=== PATIENT | female | born 1940 | race Caucasian/White ===

== ENCOUNTER 2017-01-04 10:01 | Emergency (ER) | payer OTHER ==
[2017-01-04 10:05] VITALS: BP 168/90; PULSE 87; RESP 14; TEMP 97.9; O2SAT 92
[2017-01-04] MEDS ORDERED: TDAP ADULT 0.5 ML INJ (BOOSTRIX) IM ONE (10:27)
--- NOTE | 2017-01-04 10:31 | EDPHY ---
H & P Time Seen by Provider: 01/04/17 10:03 HPI/ROS: CHIEF COMPLAINT: Left middle finger laceration HISTORY OF PRESENT ILLNESS: 76-year-old female who is [id number] presents emergency department with a laceration to her left middle finger that she sustained 14 hours ago with a kitchen knife while cutting a sweet potato. Tetanus is not up-to-date. Patient denies numbness or tingling to her hand, she denies other complaints. Smoking Status: Never smoked Physical Exam: GEN: Awake, alert, oriented, no acute distress RESP: nl resp effort MSK: Left middle finger with full active flexion and extension against resistance at DIP, PIP and MCP joint, 2 point discrimination intact SKIN: 0.5 cm flap laceration to left lateral middle finger Constitutional: Initial Vital Signs Temperature (C) 36.6 C 01/04/17 10:03 Heart Rate 87 01/04/17 10:03 Respiratory Rate 14 01/04/17 10:03 Blood Pressure 168/90 H 01/04/17 10:03 O2 Sat (%) 92 01/04/17 10:03 O2 Delivery Mode Room Air Allergies/Adverse Reactions: Sulfa (Sulfonamide Antibiotics) Allergy (Mild, Verified 02/28/14 12:22) Itching Home Medications: Medication Instructions Recorded Aspirin [Aspirin 81mg (*)] 81 mg PO HS 02/28/14 Cetirizine [ZyrTEC 10 mg (*)] 10 mg PO DAILY 02/28/14 Diltiazem Cd [Cardizem ER 120 MG 120 mg PO DAILY #30 cap 03/02/14 (*)] MDM/Departure - MDM Procedures: Left middle finger anesthetized with 1% lidocaine without epinephrine using a digital block. Finger was cleaned well by the emergency department instrument technician apprentice. This laceration was not sutured as she sustained this laceration 14 hours ago. Laceration flap is well aligned. Bulky dressing was placed. Patient is given strict return precautions. She was given a tetanus booster today. - Depart Disposition: Home, Routine, Self-Care Clinical Impression: Laceration of left middle finger Condition: Good Instructions: Finger Laceration (ED) Additional Instructions: Keep dressing clean and dry for 72 hours. Then you may take this off, shower as usual, place antibiotic ointment and Band-Aid. Return to the emergency department for any fevers, increased pain, drainage, any signs of infection, any new symptoms or concerns. Referrals: Artemio Curran MD [Primary Care Provider] - Follow Up Only If Needed
== END 2017-01-04 11:00 | disposition home or self-care (01) ==
PROC: 3E0T3BZ Introduction of Anesthetic Agent into Peripheral Nerves and Plexi, Percutaneous Approach (ICD-10-PCS; principal; 2017-01-04)
PROC: 3E0234Z Introduction of Serum, Toxoid and Vaccine into Muscle, Percutaneous Approach (ICD-10-PCS; principal; 2017-01-04)
DX: S61.213A Laceration without foreign body of left middle finger without damage to nail, initial encounter (principal); Z23 Encounter for immunization; Z79.82 Long term (current) use of aspirin; W26.0XXA Contact with knife, initial encounter; Y99.8 Other external cause status; Y93.G1 Activity, food preparation and clean up

== ENCOUNTER 2019-01-04 19:16 | Emergency (ER) | payer OTHER ==
--- NOTE | 2019-01-04 19:26 | EDPHY ---
H & P Time Seen by Provider: 01/04/19 19:25 HPI/ROS: CHIEF COMPLAINT: Abdominal pain HISTORY OF PRESENT ILLNESS: The patient presents the ED with increasing abdominal pain over the past 30 hr. She was seen at urgent care and diagnosed with bacteriuria. She was started on antibiotics. The patient tells me that her pain is slowly and steadily been increasing. It seems to be localized to the lower pelvic region left greater than right. She denies any vomiting or diarrhea. She has no history of recent abdominal surgery. The patient denies any melena. The patient states that her pain is moderate in nature and worsened with palpation and movement. REVIEW OF SYSTEMS: A comprehensive 10 point review of systems is otherwise negative aside from elements mentioned in the history of present illness. Source: Patient Exam Limitations: No limitations - Personal History Tetanus Vaccine Date: 01/16/09 - Medical/Surgical History Hx Asthma: No Hx Chronic Respiratory Disease: No Hx Diabetes: No Hx Cardiac Disease: No Hx Renal Disease: No Hx Cirrhosis: No Hx Alcoholism: No Hx HIV/AIDS: No Hx Splenectomy or Spleen Trauma: No Other PMH: denies - Social History Smoking Status: Never smoked - Physical Exam Exam: General Appearance: Alert, no distress Eyes: Pupils equal and round no pallor or injection ENT, Mouth: Mucous membranes moist Respiratory: There are no retractions, lungs are clear to auscultation Cardiovascular: Regular rate and rhythm Gastrointestinal: Tenderness to deep palpation noted in the left lower quadrant and suprapubic area Neurological: 5/5 strength noted all 4 extremities Back: No CVA tenderness Skin: Warm and dry, no rashes Musculoskeletal: Neck is supple nontender Extremities: symmetrical, full range of motion Constitutional: Initial Vital Signs Temperature (C) 36.9 C 01/04/19 19:28 Heart Rate 86 01/04/19 19:28 Respiratory Rate 16 01/04/19 19:28 Blood Pressure 164/93 H 01/04/19 19:28 O2 Sat (%) 95 01/04/19 19:28 O2 Delivery Mode Room Air Allergies/Adverse Reactions: Sulfa (Sulfonamide Antibiotics) Allergy (Mild, Verified 02/28/14 12:22) Itching Home Medications: Medication Instructions Recorded Hydrocodone/APAP 5/325 [[place] 1 - 2 each PO Q6 PRN #20 tab 01/04/19 5/325] Keflex 01/04/19 Ondansetron Odt [Zofran Odt] 4 mg PO Q4PRN PRN #20 tab 01/04/19 Triamterene 01/04/19 Medical Decision Making - Diagnostics Imaging Results: CT abdomen pelvis with IV contrast: Changes consistent with cystitis are noted , no pyelonephritis, no perinephric abscess, no diverticulitis, no perforation, no obstruction ED Course/Re-evaluation: Patient presents the ED with complaints of lower pelvic pain. She was diagnosed with a urinary tract infection urgent care earlier today. She took just 1 dose of Keflex. The patient denies frequency or dysuria but does complain of some bladder discomfort. She had no evidence of pyelonephritis noted on exam. She was fairly tender in the lower abdomen both over the bladder and bilaterally adjacent to the bladder. Given her age in tenderness a CT scan of the abdomen was obtained which demonstrates cystitis but no evidence of a perforation, abscess, appendicitis or perinephric abscess. The patient was treated with IV Dilaudid in the emergency department. The urinalysis does demonstrate pyuria hematuria and bacturia. The patient received 1 g of ceftriaxone. The patient is currently on a 5 day course of Keflex which seems like a reasonable antibiotic to continue. The patient will be discharged home with a prescription for pain medications. She is given customary aftercare instructions and return precautions. Differential Diagnosis: Differential diagnosis considered includes cystitis, pyelonephritis, diverticulitis, appendicitis, perforation, abscess - Data Points Laboratory Results: Laboratory Results 01/04/19 19:47 01/04/19 19:47 01/04/19 01/04/19 01/04/19 19:54 19:47 19:47 WBC 9.16 10^3/uL 10^3/uL (3.80-9.50) RBC 4.17 10^6/uL L 10^6/uL (4.18-5.33) Hgb 12.8 g/dL g/dL (12.6-16.3) POC Hgb 13.3 gm/dL gm/dL (12.6-16.3) Hct 38.0 % % (38.0-47.0) POC Hct 39 % % (38-47) MCV 91.1 fL fL (81.5-99.8) MCH 30.7 pg pg (27.9-34.1) MCHC 33.7 g/dL g/dL (32.4-36.7) RDW 12.6 % % (11.5-15.2) Plt Count 292 10^3/uL 10^3/uL (150-400) MPV 9.4 fL fL (8.7-11.7) Neut % (Auto) 60.0 % % (39.3-74.2) Lymph % (Auto) 28.7 % % (15.0-45.0) [place] % (Auto) 7.1 % % (4.5-13.0) Eos % (Auto) 3.6 % % (0.6-7.6) Baso % (Auto) 0.4 % % (0.3-1.7) Nucleat RBC Rel Count 0.0 % % (0.0-0.2) Absolute Neuts (auto) 5.49 10^3/uL 10^3/uL (1.70-6.50) Absolute Lymphs (auto) 2.63 10^3/uL 10^3/uL (1.00-3.00) Absolute Monos (auto) 0.65 10^3/uL 10^3/uL (0.30-0.80) Absolute Eos (auto) 0.33 10^3/uL 10^3/uL (0.03-0.40) Absolute Basos (auto) 0.04 10^3/uL 10^3/uL (0.02-0.10) Absolute Nucleated RBC 0.00 10^3/uL 10^3/uL (0-0.01) Immature Gran % 0.2 % % (0.0-1.1) Immature Gran # 0.02 10^3/uL 10^3/uL (0.00-0.10) POC Sodium 141 mEq/L mEq/L (135-145) Sodium 137 mEq/L mEq/L (135-145) POC Potassium 3.7 mEq/L mEq/L (3.3-5.0) Potassium 3.8 mEq/L mEq/L (3.5-5.2) POC Chloride 103 mEq/L mEq/L (97-110) Chloride 99 mEq/L mEq/L (97-110) Carbon Dioxide 25 mEq/l mEq/l (22-31) POC Total CO2 26 mEq/L mEq/L (22-31) Anion Gap 13 mEq/L mEq/L (6-14) POC BUN 22 mg/dL mg/dL (7-23) BUN 22 mg/dL mg/dL (7-23) Creatinine 0.9 mg/dL mg/dL (0.6-1.0) POC Creatinine 1.0 mg/dL mg/dL (0.6-1.0) Estimated GFR 60 Glucose 92 mg/dL mg/dL (70-100) POC Glucose 94 mg/dL mg/dL (70-100) Calcium 10.3 mg/dL mg/dL (8.5-10.4) Total Bilirubin 0.4 mg/dL mg/dL (0.1-1.4) Conjugated Bilirubin 0.0 mg/dL mg/dL (0.0-0.5) Unconjugated Bilirubin 0.4 mg/dL mg/dL (0.0-1.1) AST 28 IU/L IU/L (14-46) ALT 35 IU/L IU/L (9-52) Alkaline Phosphatase 76 IU/L IU/L (38-126) Total Protein 8.0 g/dL g/dL (6.3-8.2) Albumin 4.7 g/dL g/dL (3.5-5.0) Lipase 163 IU/L IU/L (23-300) Urine Color Urine Appearance Urine pH Ur Specific [place] Urine Protein Urine Ketones Urine Blood Urine Nitrate Urine Bilirubin Urine Urobilinogen Ur Leukocyte Esterase Urine RBC Urine WBC Ur Epithelial Cells Amorphous Sediment Urine Bacteria Urine Mucus Urine Yeast Urine Glucose 01/04/19 19:25 WBC RBC Hgb POC Hgb Hct POC Hct MCV MCH MCHC RDW Plt Count MPV Neut % (Auto) Lymph % (Auto) [place] % (Auto) Eos % (Auto) Baso % (Auto) Nucleat RBC Rel Count Absolute Neuts (auto) Absolute Lymphs (auto) Absolute Monos (auto) Absolute Eos (auto) Absolute Basos (auto) Absolute Nucleated RBC Immature Gran % Immature Gran # POC Sodium Sodium POC Potassium Potassium POC Chloride Chloride Carbon Dioxide POC Total CO2 Anion Gap POC BUN BUN Creatinine POC Creatinine Estimated GFR Glucose POC Glucose Calcium Total Bilirubin Conjugated Bilirubin Unconjugated Bilirubin AST ALT Alkaline Phosphatase Total Protein Albumin Lipase Urine Color YELLOW Urine Appearance HAZY Urine pH 6.0 (5.0-7.5) Ur Specific [place] 1.013 (1.002-1.030) Urine Protein NEGATIVE (NEGATIVE) Urine Ketones NEGATIVE (NEGATIVE) Urine Blood 1+ H (NEGATIVE) Urine Nitrate NEGATIVE (NEGATIVE) Urine Bilirubin NEGATIVE (NEGATIVE) Urine Urobilinogen NEGATIVE EU EU (0.2-1.0) Ur Leukocyte Esterase 3+ H (NEGATIVE) Urine RBC 10-15 /hpf H /hpf (0-3) Urine WBC 25-50 /hpf H /hpf (0-3) Ur Epithelial Cells TRACE /lpf /lpf (NONE-1+) Amorphous Sediment PRESENT /hpf /hpf (NONE-1+) Urine Bacteria TRACE /hpf H /hpf (NONE SEEN) Urine Mucus TRACE /lpf /lpf (NONE-1+) Urine Yeast PRESENT /hpf /hpf (NONE SEEN) Urine Glucose NEGATIVE (NEGATIVE) Medications Given: Discontinued Medications Hydromorphone HCl (Dilaudid) 0.5 mg IVP EDNOW ONE Stop: 01/04/19 19:37 Last Admin: 01/04/19 19:50 Dose: 0.5 mg Sodium Chloride (Ns) 1,000 mls @ 0 mls/hr IV EDNOW ONE; Wide Open PRN Reason: Protocol Stop: 01/04/19 19:37 Last Admin: 01/04/19 19:50 Dose: 1,000 mls Point of Care Test Results: Chemistry 01/04/19 19:54 POC Sodium 141 mEq/L mEq/L (135-145) POC Potassium 3.7 mEq/L mEq/L (3.3-5.0) POC Chloride 103 mEq/L mEq/L (97-110) POC Total CO2 26 mEq/L mEq/L (22-31) POC BUN 22 mg/dL mg/dL (7-23) POC Creatinine 1.0 mg/dL mg/dL (0.6-1.0) POC Glucose 94 mg/dL mg/dL (70-100) ISTAT H&H 01/04/19 19:54 POC Hgb 13.3 gm/dL gm/dL (12.6-16.3) POC Hct 39 % % (38-47) Departure - Departure Disposition: Home, Routine, Self-Care Clinical Impression: Cystitis Abdominal pain Qualifiers: Abdominal location: left lower quadrant Qualified Code(s): R10.32 - Left lower quadrant pain Condition: Good Instructions: Urinary Tract Infection in Women (DC) Additional Instructions: 1. Please continue your Keflex as prescribed. 2. [place] as needed for pain. 3. Return to the ED for increasing pain, fever, vomiting, back pain or other concerns. 4. Please schedule a follow-up appointment with your primary care provider as needed. 5. Zofran as needed for nausea. Referrals: Yvette Rey MD [Primary Care Provider] - As per Instructions Prescriptions: Hydrocodone/APAP 5/325 [[place] 5/325] 1 - 2 each PO Q6 PRN #20 tab PRN Reason: for pain Ondansetron Odt [Zofran Odt] 4 mg PO Q4PRN PRN #20 tab PRN Reason: For Nausea
[2019-01-04] MEDS ORDERED: NS 1,000 ML IV ONE (19:36)
[2019-01-04] MEDS ORDERED: HYDROmorphONE/DILAUDID 2 MG/ML INJ IVP ONE (19:36)
[2019-01-04 20:03] LABS: PLATELET COUNT 292 10^3/uL (150-400)
[2019-01-04] MEDS ORDERED: IOPAMIDOL (ISOVUE-300) 100 ML BTL ONE (20:13)
[2019-01-04] MEDS ORDERED: HYDROCOD/APAP 5/325 PREPACK#6 BTL TAKEHOME ONE (21:03)
[2019-01-04] MEDS ORDERED: ONDANSETRON 4MG PREPACK#2 BTL TAKEHOME ONE (21:03)
[2019-01-04 21:37] VITALS: BP 159/86
== END 2019-01-04 21:57 | disposition home or self-care (01) ==
DX: N30.00 Acute cystitis without hematuria (principal); R10.32 Left lower quadrant pain; E86.9 Volume depletion, unspecified; Z88.2 Allergy status to sulfonamides
CPT/HCPCS: 74177; 96361; 96365; 96375; 99285; J0696; J1170; Q9967; 82435-PO; 82565-PO; 82947-PO; 84132-PO; 84295-PO; 84520-PO; 85014-ER